=== PATIENT | female | born 2005 | race Caucasian/White ===

== ENCOUNTER 2024-09-12 10:13 | Outpatient (CLI) | payer BC | END 2024-09-12 10:14 | disposition home or self-care (01) | LOC: CT 10:13 | PROVIDERS: ATTEND Otolaryngology Plastic Surgery within the Head & Neck | DX: H90.41 Sensorineural hearing loss, unilateral, right ear, with unrestricted hearing on the contralateral side (principal); H93.11 Tinnitus, right ear | CPT/HCPCS: 70480 ==